=== PATIENT | female | born 1990 | race Caucasian/White ===

== ENCOUNTER 2018-03-20 00:50 | Emergency (ER) | payer OTHER ==
[~2018-03-20] VITALS: Ht 162.6 cm; Wt 139.1 kg
[2018-03-20 00:53] VITALS: TEMP 36.4; Ht 162.6 cm; Wt 139.1 kg
[2018-03-20] MEDS ORDERED: ONDANSETRON INJ 2 MG/ML 2 ML VIAL IV STA (01:08)
[2018-03-20] MEDS ORDERED: SODIUM CHLORIDE 0.9% 1000ML 1,000 ML IV STA (01:08)
[2018-03-20] MEDS ORDERED: FAMOTIDINE 20MG/5ML IV PUSH IV STA (01:09)
[2018-03-20] MEDS ORDERED: FENTANYL CITRATE INJ 50 MCG/1 ML 2 ML VIAL IV STA (01:09)
--- NOTE | 2018-03-20 01:19 | EMERGENCY ROOM VISIT NOTE ---
History Report prepared by Gail: Ketan Card Under the Supervision of: Dr. Farzana Sanchez D.O. First contact with patient: 00:59 Chief Complaint: PAIN (GENERALIZED) Stated Complaint: BODY ACHE,ABD,CHEST EVERYTHING HURTS History of Present Illness The patient is a 27 year old female who presents to the Emergency Room with complaints of constant chest and abdominal pain beginning tonight. The patient states that she was at work tonight when she started having sudden chest and abdominal pain. She notes that she ran to the bathroom after her symptoms began and vomited. She reports that she was able to make it back to her apartment to take some tums, but she states that she then vomited again. She notes that her chest pain is worse than her abdominal pain. She reports that her pain does not change with position. She also complains of neck pain, SOB, and nausea. The patient states that she feels SOB because of her chest pain. She notes that she felt fine earlier in the day and she denies any fevers, chills, changes to her bowel movements, urinary symptoms, dizziness, lightheadedness, and bitter/sour taste. She rates her pain as a 10/10. She also denies any recent travel, activity change, change in diet, and known sick contacts. She reports that she felt as though she could not move for a few minutes after the onset of her symptoms. The patient states that she has had similar episodes that were relieved by tums. She notes that her last episode was a year ago and she reports that she thought that her symptoms were caused by the way that she slept. The patient states that she changed her sleeping position and has not had any problems since. She notes that she has been more stressed recently, but she reports that her stress does not typically manifest physically. The patient states that she does not have a family history of stomach issues. She notes that she has a family history of CHF and asthma. Source of History: patient Onset: tonight Position: chest, abdomen Symptom Intensity: 10/10 Timing: constant Associated Symptoms: + neck pain, + SOB, + nausea, No fevers, No chills, No urinary symptoms Note: The patient also denies any changes to her bowel movements, dizziness, lightheadedness, and bitter/sour taste. Review of Systems See HPI for pertinent positives & negatives. A total of 10 systems reviewed and were otherwise negative. Past Medical & Surgical Medical Problems: (1) No chronic problems Family History FH: CHF (congestive heart failure) FH: asthma Social History Smoking Status: Never Smoker Marital Status: single Occupation Status: employed Current/Historical Medications Scheduled PRN Albuterol Hfa (Ventolin Hfa), 2 PUFFS INH Q6H PRN for SOB/Wheezing Allergies Coded Allergies: No Known Allergies (Unverified , 03/20/18) Physical Exam Vital Signs Date Time Temp Pulse Resp B/P (MAP) Pulse Ox O2 Delivery O2 Flow Rate FiO2 03/20/18 05:09 67 20 145/85 99 03/20/18 04:52 67 20 145/85 99 Room Air 03/20/18 03:00 64 18 169/103 100 Room Air 03/20/18 00:53 36.4 70 16 142/81 100 Room Air Physical Exam GENERAL: alert, well appearing, well nourished, no distress, non-toxic, obese. EYE EXAM: normal conjunctiva, PERRL and EOM's grossly intact OROPHARYNX: no exudate, no erythema, lips, buccal mucosa, and tongue normal and mucous membranes are moist NECK: supple, no nuchal rigidity, no adenopathy, non-tender LUNGS: Clear to auscultation. Normal chest wall mechanics. No wheezes, rhonchi, and rales. HEART: no murmurs, S1 normal and S2 normal CHEST: Some reproducible right sternal border tenderness. ABDOMEN: abdomen soft, normo-active bowel sounds, no masses, no rebound or guarding, mild epigastric tenderness. BACK: Back is symmetrical on inspection and there is no deformity, no midline tenderness, no CVA tenderness. SKIN: no rashes and no bruising UPPER EXTREMITIES: upper extremities are grossly normal. LOWER EXTREMITIES: No pitting edema. NEURO EXAM: Normal sensorium, cranial nerves II-XII grossly intact, normal speech, no gross weakness of arms, no gross weakness of legs. Medical Decision & Procedures ER Provider Diagnostic Interpretation: Radiology results have been interpreted and reviewed by me. CHEST X-RAY: No cardiomegaly, no effusion, no wide mediastinum, on focal consolidation. Radiology results have been interpreted by the radiologist and reviewed by me. US RUQ: Limited by body habitus. Sludge. No wall thickening. Negative sonographic Bentley sign reported. Caliber of CBS upper limits normal measuring up to about 5mm in caliber. Portions of the pancreas obscured. Visualized portions unremarkable. No right hydronephrosis. Radiologist: Isac Robertson M.D. Laboratory Results 03/20/18 01:30 Red Blood Count 4.36, Mean Corpuscular Volume 86.7, Mean Corpuscular Hemoglobin 29.4, Mean Corpuscular Hemoglobin Concent 33.9, Mean Platelet Volume 10.1, Neutrophils (%) (Auto) 75.1, Lymphocytes (%) (Auto) 17.8, Monocytes (%) (Auto) 5.7, Eosinophils (%) (Auto) 1.0, Basophils (%) (Auto) 0.2, Neutrophils # (Auto) 9.84, Lymphocytes # (Auto) 2.33, Monocytes # (Auto) 0.74, Eosinophils # (Auto) 0.13, Basophils # (Auto) 0.02 03/20/18 01:30 Test 03/20/18 01:30 White Blood Count 13.09 K/uL (4.8-10.8) Red Blood Count 4.36 M/uL (4.2-5.4) Hemoglobin 12.8 g/dL (12.0-16.0) Hematocrit 37.8 % (37-47) Mean Corpuscular Volume 86.7 fL (80-100) Mean Corpuscular Hemoglobin 29.4 pg (25-34) Mean Corpuscular Hemoglobin Concent 33.9 g/dl (32-36) Platelet Count 326 K/uL (130-400) Mean Platelet Volume 10.1 fL (7.4-10.4) Neutrophils (%) (Auto) 75.1 % Lymphocytes (%) (Auto) 17.8 % Monocytes (%) (Auto) 5.7 % Eosinophils (%) (Auto) 1.0 % Basophils (%) (Auto) 0.2 % Neutrophils # (Auto) 9.84 K/uL (1.4-6.5) Lymphocytes # (Auto) 2.33 K/uL (1.2-3.4) Monocytes # (Auto) 0.74 K/uL (0.11-0.59) Eosinophils # (Auto) 0.13 K/uL (0-0.5) Basophils # (Auto) 0.02 K/uL (0-0.2) RDW Standard Deviation 43.1 fL (36.4-46.3) RDW Coefficient of Variation 13.5 % (11.5-14.5) Immature Granulocyte % (Auto) 0.2 % Immature Granulocyte # (Auto) 0.03 K/uL (0.00-0.02) Prothrombin Time 10.1 SECONDS (9.0-12.0) Prothromb Time International Ratio 1.0 (0.9-1.1) D-Dimer 330 ug/L FEU (0-500) Anion Gap 7.0 mmol/L (3-11) Est Creatinine Clear Calc Drug Dose 121.3 ml/min Estimated GFR () 91.8 Estimated GFR (Non- 79.2 BUN/Creatinine Ratio 19.5 (10-20) Calcium Level 8.8 mg/dl (8.5-10.1) Total Bilirubin 0.5 mg/dl (0.2-1) Aspartate Amino Transf (AST/SGOT) 23 U/L (15-37) Alanine Aminotransferase (ALT/SGPT) 25 U/L (12-78) Alkaline Phosphatase 81 U/L (45-117) Troponin I < 0.015 ng/ml (0-0.045) Pro-B-Type Natriuretic Peptide 43 pg/ml (0-450) Total Protein 8.0 gm/dl (6.4-8.2) Albumin 3.8 gm/dl (3.4-5.0) Globulin 4.2 gm/dl (2.5-4.0) Albumin/Globulin Ratio 0.9 (0.9-2) Lipase 174 U/L (73-393) Thyroid Stimulating Hormone (TSH) 3.460 uIu/ml (0.300-4.500) Human Chorionic Gonadotropin, Qual NEG (NEG) Laboratory results per my review. Medications Administered Medications (Trade) Dose Ordered Sig/Nona Route Start Time Stop Time Status Last Admin Dose Admin Sodium Chloride 1,000 ml @ 999 mls/hr Q1H1M STAT IV 03/20/18 01:08 03/20/18 02:08 DC 03/20/18 01:36 999 MLS/HR Ondansetron HCl (Zofran Inj) 4 mg NOW STAT IV 03/20/18 01:08 03/20/18 01:10 DC 8/17/18 01:36 4 MG Fentanyl Citrate (Fentanyl Inj) 100 mcg NOW STAT IV 03/20/18 01:09 03/20/18 01:10 DC 03/20/18 01:37 100 MCG Famotidine (Pepcid 20mg Iv Push) 20 mg ONE STAT IV 03/20/18 01:09 03/20/18 01:10 DC 03/20/18 01:37 20 MG Ketorolac Tromethamine (Toradol Inj) 30 mg NOW STAT IV 03/20/18 03:01 03/20/18 03:02 DC 03/20/18 03:08 30 MG Miscellaneous Medication (Gi Cocktail) 24 ml NOW STAT PO 03/20/18 03:01 03/20/18 03:02 DC 03/20/18 03:08 24 ML ECG Per My Interpretation Indication: chest pain Rate (beats per minute): 67 Rhythm: sinus rhythm Findings: no acute ischemic change, no ectopy, other (Normal axis, normal intervals) ED Course 0100: The patient was evaluated in room A11. A complete history and physical exam was performed. 0108: Zofran Inj 4mg IV, Sodium Chloride 1000 ml @ 999 mls/hr IV 0109: Famotidine 20mg IV, Fentanyl Citrate 100mcg IV 0300: I reevaluated and updated the patient. She is still having pain. 0301: GI Cocktail 24ml PO, Toradol Inj 30mg IV 0416: I reevaluated and updated the patient. She states that she is feeling much better after her medication. She notes that her pain returned after she took some sips of cold ice water. We will try to give her some lukewarm benoit jacki. 0509: Upon reevaluation, the patient is feeling better. I discussed the findings and the treatment plan with the patient. She verbalizes agreement and understanding. The patient was discharged home. Medical Decision Differential diagnosis: Etiologies such as cardiac ischemia, aortic dissection, pulmonary embolism, pneumonia, pneumothorax, musculoskeletal, infections, pericarditis, myocarditis , esophageal rupture, gastrointestinal, as well as others were entertained. Heart score 1 Patient well-appearing here. Patient improved following medications. Labs and imaging reassuring. I do not suspect ACS, dissection, PE, tamponade, effusion, pneumothorax. No evidence of acute infectious etiology. Discussed with patient close follow-up, symptoms to watch and return for, possible need for additional evaluation of her gallbladder given cholelithiasis noted, avoidance of acidic foods due to consideration for underlying gastritis/GERD, patient verbalized understanding of all this and was agreeable with plan. Medication Reconcilliation Current Medication List: was personally reviewed by me Blood Pressure Screening Patient's blood pressure: Elevated blood pressure Blood pressure disposition: Elevated BP felt to be situational Impression Primary Impression: Chest pain Additional Impressions: Epigastric pain Cholelithiases Scribe Attestation The scribe's documentation has been prepared under my direction and personally reviewed by me in its entirety. I confirm that the note above accurately reflects all work, treatment, procedures, and medical decision making performed by me. Departure Information Dispostion Home / Self-Care Forms HOME CARE DOCUMENTATION FORM, IMPORTANT VISIT INFORMATION, WORK / SCHOOL INSTRUCTIONS Patient Instructions My [facility] Additional Instructions Please call follow-up with your family doctor. You may need additional testing of your gallbladder as this may be the reason for some of your intermittent upper abdominal pain. The ultrasound did reveal gallstones tonight however your gallbladder did not appear to need emergently removed. Please avoid acidic foods in your diet as you could also have underlying stomach irritation and reflux. Foods that are high in acid include alcohol, coffee, soda, tomato based products, and citrus fruits. Please consider starting an over-the- counter acid reducing medication for the next 2-3 weeks as a precaution such as Prilosec or Pepcid. If you have any recurrent episodes of pain, develop fevers or chills, vomiting, black or bloody stools, trouble breathing, you have any other new or concerning symptoms, please return the emergency room immediately. Problem Qualifiers Primary Impression: Chest pain Chest pain type: unspecified Qualified Codes: R07.9 - Chest pain, unspecified Additional Impressions: Cholelithiases Cholelithiasis location: gallbladder Cholecystitis presence: without cholecystitis Biliary obstruction: without biliary obstruction Qualified Codes: K80.20 - Calculus of gallbladder without cholecystitis without obstruction
[2018-03-20 01:43] LABS: BASO % 0.2 %; BASO ABS # 0.02 K/uL (0-0.2); EOS ABS # 0.13 K/uL (0-0.5); HEMATOCRIT 37.8 % (37-47); HEMOGLOBIN 12.8 g/dL (12.0-16.0); IG# 0.03 K/uL (0.00-0.02); LYMPH % 17.8 %; LYMPH ABS # 2.33 K/uL (1.2-3.4); MEAN CELL VOLUME 86.7 fL (80-100); MEAN CORPUSCULAR HEMOGLOBIN 29.4 pg (25-34); MEAN CORPUSCULAR HGB CONC 33.9 g/dl (32-36); MEAN PLATELET VOLUME 10.1 fL (7.4-10.4); MONO % 5.7 %; MONO ABS # 0.74 K/uL (0.11-0.59); NEUT % 75.1 %; NEUT ABS # 9.84 K/uL (1.4-6.5); PLATELET COUNT 326 K/uL (130-400); RED CELL DISTRIBUTION WIDTH CV 13.5 % (11.5-14.5); RED CELL DISTRIBUTION WIDTH SD 43.1 fL (36.4-46.3); WHITE BLOOD COUNT 13.09 K/uL (4.8-10.8)
[2018-03-20 02:10] LABS: ALBUMIN 3.8 gm/dl (3.4-5.0); ALKALINE PHOSPHATASE 81 U/L (45-117); ALT/SGPT 25 U/L (12-78); AST/SGOT 23 U/L (15-37); BLOOD UREA NITROGEN 19 mg/dl (7-18); CALCIUM 8.8 mg/dl (8.5-10.1); CARBON DIOXIDE 25 mmol/L (21-32); CREATININE 0.99 mg/dl (0.60-1.20); GLUCOSE 94 mg/dl (70-99); LIPASE 174 U/L (73-393); POTASSIUM 3.8 mmol/L (3.5-5.1); SODIUM 141 mmol/L (136-145)
[2018-03-20] MEDS ORDERED: GI COCKTAIL PO STA (03:01)
[2018-03-20] MEDS ORDERED: KETOROLAC TROMETHAMINE 30 MG/ML VIAL IV STA (03:01)
[2018-03-20] MEDS ORDERED: LIDOCAINE HCL 2% VISC SOLN 20 ML UDC ONE (03:05)
[2018-03-20] MEDS ORDERED: ALUMINUM/MAGNESIUM SUSP 30 ML UDC ONE (03:06)
[2018-03-20] MEDS ORDERED: VNTHFA/IN INH (03:35)
[2018-03-20 05:09] VITALS: BP 145/85; PULSE 67; O2SAT 99
--- NOTE | 2018-03-20 06:51 | DIAGNOSTIC IMAGING REPORT ---
GALLBLADDER-ABD LIMITED CLINICAL HISTORY: epigastric pain pain. Nausea. TECHNIQUE: Ultrasound COMPARISON STUDY: None FINDINGS: Moderate amount of gallbladder sludge. No shadowing gallstones. Gallbladder wall 1.5 mm., Bilateral 5 mm. Liver is uniform. Poor visibility of the pancreas. Right kidney is negative for hydronephrosis. IMPRESSION: Gallbladder sludge. Normal caliber bile ducts. Otherwise negative study. The above report was generated using voice recognition software. It may contain grammatical, syntax or spelling errors. Electronically signed by: Chris Conrad M.D. 03/20/2018 6:50 AM Dictated Date/Time: 03/20/2018 6:49 AM
--- NOTE | 2018-03-20 07:46 | DIAGNOSTIC IMAGING REPORT ---
CHEST 2 VIEWS ROUTINE CLINICAL HISTORY: 27 years-old Female presenting with chest pain. TECHNIQUE: PA and lateral views of the chest were obtained. COMPARISON: None. FINDINGS: Cardiomediastinal silhouette normal. Lungs and pleural spaces clear. Osseous structures normal. Upper abdomen normal. IMPRESSION: 1. No acute cardiopulmonary disease. Electronically signed by: Garry Espino M.D. 03/20/2018 7:44 AM Dictated Date/Time: 03/20/2018 6:56 AM
== END 2018-03-20 05:00 | disposition home or self-care (01) ==
LOC: C.EDB 00:51 → C.EDA 05:00
DX: K80.20 Calculus of gallbladder without cholecystitis without obstruction (principal); Z82.5 Family history of asthma and other chronic lower respiratory diseases; Z82.49 Family history of ischemic heart disease and other diseases of the circulatory system; E66.9 Obesity, unspecified